=== PATIENT | female | born 1985 | race Caucasian/White ===

== ENCOUNTER 2018-11-30 08:29 | Emergency (ER) | payer SELFPAY ==
--- NOTE | 2018-11-30 09:37 | EDM.PDOC ---
ED HPI GENERAL MEDICAL PROBLEM - General Chief Complaint: NEGATIVE RETOUCHER Problem Stated Complaint: MISCARRAGE? Time Seen by Provider: 11/30/18 09:15 Source of Information: Reports: Patient, RN History Limitations: Reports: No Limitations - History of Present Illness INITIAL COMMENTS - FREE TEXT/NARRATIVE: 33 yo female presents with vaginal bleeding. This has been going on for a few weeks, but got heavy with clots last night and passed some tissue. She is RH positive. Is not dizzy with standing. Presented to urgent care today and they sent her to the ER. Has children at home already. Has not taken a preg test. Onset: Gradual Duration: Week(s): (~3), Getting Worse Severity: Moderate Improves with: Reports: None Worsens with: Reports: Other (? 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) (none) - Related Data Allergies Allergy/AdvReac Type Severity Reaction Status Date / Time No Known Allergies Allergy Verified 11/30/18 08:54 Home Meds: Home Meds NK [No Known Home Meds] 11/30/18 [History] Past Medical History HEENT History: Reports: Impaired Vision Respiratory History: Reports: Asthma NEGATIVE RETOUCHER History: Reports: Psychiatric History: Reports: PTSD - Past Surgical History Head Surgeries/Procedures: Reports: None HEENT Surgical History: Reports: None Respiratory Surgical History: Reports: None Dermatological Surgical History: Reports: None Social & Family History - Tobacco Use Smoking Status *Q: Current Every Day Smoker Years of Tobacco use: 10 Packs/Tins Daily: 0.5 Used Tobacco, but Quit: No - Caffeine Use Caffeine Use: Reports: Soda - Alcohol Use Days Per Week of Alcohol Use: 3 Number of Drinks Per Day: 2 Total Drinks Per Week: 6 - Recreational Drug Use Recreational Drug Use: No ED ROS GENERAL - Review of Systems Review Of Systems: See Below Constitutional: Reports: No Symptoms HEENT: Reports: No Symptoms Respiratory: Reports: No Symptoms Cardiovascular: Reports: No Symptoms GI/Abdominal: Reports: No Symptoms : Reports: Other (heavy vaginal bleeding) 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: Reports: No Symptoms Skin: Reports: No Symptoms Neurological: Reports: No Symptoms Psychiatric: Reports: No Symptoms ED EXAM - Physical Exam Exam: See Below Exam Limited By: No Limitations General Appearance: Alert, WD/WN, No Apparent Distress Eye Exam: Bilateral Eye: Normal Inspection Ears: Normal External Exam, Normal Canal, Hearing Grossly Normal Nose: Normal Inspection, No Blood Throat/Mouth: Normal Inspection, Normal Lips, Normal Oropharynx, Normal Voice, No Airway Compromise Head: Atraumatic, Normocephalic Neck: Normal Inspection Respiratory/Chest: No Respiratory Distress, Lungs Clear, Normal Breath Sounds, No Accessory Muscle Use Cardiovascular: Regular Rate, Rhythm, No Edema GI/Abdominal Exam: Normal Bowel Sounds, Soft, Non-Tender, No Distention Extremities: Normal Inspection Neurological: Alert, Oriented, CN II-XII Intact, Normal Cognition, No Motor/ Sensory Deficits Psychiatric: Normal Affect, Normal Mood Skin Exam: Warm, Dry, Intact, Normal Color, No Rash Course - Vital Signs Last Recorded V/S: Last Vital Signs Temp 36.0 C 11/30/18 08:44 Pulse 87 11/30/18 08:44 Resp 16 11/30/18 08:44 BP 142/94 H 11/30/18 08:44 Pulse Ox 97 11/30/18 08:44 Orthostatic Blood Pressure [ 134/75 Standing] Orthostatic Blood Pressure [ 125/79 Sitting] Orthostatic Blood Pressure [ 117/72 Supine] - Orders/Labs/Meds Orders: Active Orders 24 hr Category Date Time Status Orthostatic Vital Signs [RC] ASDIRECTED Care 11/30/18 09:00 Active Labs: Laboratory Tests 11/30/18 Range/Units 09:05 Urine HCG, Qual Positive H Departure - Departure Time of Disposition: 09:38 Disposition: Home, Self-Care 01 Condition: Good Clinical Impression: Miscarriage - Discharge Information *PRESCRIPTION DRUG MONITORING PROGRAM REVIEWED*: No *COPY OF PRESCRIPTION DRUG MONITORING REPORT IN PATIENT HODAN: No Referrals: PCP,None [Primary Care Provider] - Additional Instructions: Drink ample fluids. We have given you a referral to NEGATIVE RETOUCHER. If your bleeding stops you may cancel this appt. Return if you are getting dizzy with standing and your bleeding continues. - My Orders Last 24 Hours: My Active Orders 11/30/18 09:00 Orthostatic Vital Signs [RC] ASDIRECTED - Assessment/Plan Last 24 Hours: My Active Orders 11/30/18 09:00 Orthostatic Vital Signs [RC] ASDIRECTED
== END 2018-11-30 09:44 | disposition home or self-care (01) ==
LOC: JP.ED 08:29
DX: O03.9 Complete or unspecified spontaneous abortion without complication (principal); F17.210 Nicotine dependence, cigarettes, uncomplicated; J45.909 Unspecified asthma, uncomplicated
CPT/HCPCS: 81025; 99284

== ENCOUNTER 2019-12-18 07:23 | Inpatient (IN) | payer MEDICAID ==
[2019-12-18] MEDS ORDERED: Sodium Chloride 0.9% 10 ML Syringe FLUSH PRN (07:55)
[2019-12-18] MEDS ORDERED: fentaNYL 100 MCG/2 ML SDV IVPUSH PRN (07:55)
[2019-12-18] MEDS ORDERED: Acetaminophen 325 MG Tab PO PRN (07:55)
[2019-12-18] MEDS: Misoprostol 50 MCG (1/2 of 100 MCG) Tab VAG ONE ×2 (08:06→13:15)
--- NOTE | 2019-12-18 08:14 | PCM.LDHP ---
L&D History of Present Illness - General Date of Service: 12/18/19 (planned induction for smoking) Admit Problem/Dx: Patient Status Order with Admit Dx/Problem 12/18/19 07:55 Patient Status [ADT] Routine Admission Diagnosis/Problem Admission Diagnosis/Problem Source of Information: Patient History Limitations: Reports: No Limitations - History of Present Illness Introduction:: This 34 year old presents this morning for planned induction for smoking. She is 39 4/7 weeks gestation. Umu also drink pretty much daily for the first 10-12 weeks of her . She has had adequate care and this morning's BPP was 8/8. Jodie 9 labs: GBS neg, ABO A pos, Rubella immune, HIV neg, Covid neg Timing/Duration: Reports: intermittent Location, : Reports: Abdomen Severity: Mild Improves with: Reports: None Worsens with: Reports: None - Related Data Allergies/Adverse Reactions: Allergies Allergy/AdvReac Type Severity Reaction Status Date / Time No Known Allergies Allergy Verified 11/30/18 08:54 Home Medications: Home Meds Albuterol Sulfate [Albuterol Sulfate Hfa] 1 - 2 puff IH Q4H PRN 12/18/19 [ History] Omeprazole 20 mg PO DAILY 12/18/19 [History] Pnv No.103/Folic/Om3s/Fish Oil [ Gummies] 2 each PO DAILY 12/18/19 [ History] Past Medical History HEENT History: Reports: Impaired Vision Respiratory History: Reports: Asthma 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 (Approximate): Psychiatric History: Reports: PTSD - Past Surgical History Head Surgeries/Procedures: Reports: None HEENT Surgical History: Reports: None Respiratory Surgical History: Reports: None Dermatological Surgical History: Reports: None Social & Family History - Caffeine Use Caffeine Use: Reports: Soda H&P Review of Systems - Review of Systems: Review Of Systems: See Below General: Reports: No Symptoms HEENT: Reports: No Symptoms Pulmonary: Reports: No Symptoms Cardiovascular: Reports: No Symptoms Gastrointestinal: Reports: No Symptoms Genitourinary: Reports: No Symptoms 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: Reports: No Symptoms Skin: Reports: No Symptoms Psychiatric: Reports: No Symptoms Neurological: Reports: No Symptoms Hematologic/Lymphatic: Reports: No Symptoms Immunologic: Reports: No Symptoms L&D Exam - Exam Exam: See Below - OB Specific Movement: Active Heart Tones: Present Heart Tones per Min: 140 Heart Rate (FHR) Variability: Minimal (0-5 bpm) Presentation: Vertex - Bustamante Score Bustamante Score Cervix Position: Midposition Bustamante Score Consistency: Soft Bustamante Score Effacement: 51-70% Bustamante Score Dilation: 1-2 cm Bustamante Score 's Station: -1 ,0 Bustamante Score Total: 8 - Exam General: Alert, Oriented HEENT: PERRLA Neck: Supple Lungs: Normal Respiratory Effort Cardiovascular: Regular Rhythm GI/Abdominal Exam: Soft Rectal Exam: Normal Exam Genitourinary: Cervical dilitation, Enlarged uterus Back Exam: Full Range of Motion Extremities: No Pedal Edema, Normal Capillary Refill Skin: Warm Neurological: Cranial Nerves Intact Psychiatric: Alert, Normal Affect, Normal Mood - Patient Data Lab Results Last 24 hrs: Laboratory Results - last 24 hr 12/18/19 Range/Units 07:15 WBC 11.2 H (4.5-11.0) K/uL RBC 3.93 (3.30-5.50) M/uL Hgb 12.3 (12.0-15.0) g/dL Hct 37.9 (36.0-48.0) % MCV 96 (80-98) fL MCH 31 (27-31) pg MCHC 33 (32-36) % Plt Count 293 (150-400) K/uL Result Diagrams: 12/18/19 07:15 - Problem List (1) Alcohol abuse complicating in first trimester SNOMED Code(s): 24129958, 703415950 ICD Code: O99.311 - ALCOHOL USE COMPLICATING , FIRST TRIMESTER; F10.10 - ALCOHOL ABUSE, UNCOMPLICATED Status: Acute Current Visit: Yes (2) Smoker SNOMED Code(s): 90826038 ICD Code: F17.200 - NICOTINE DEPENDENCE, UNSPECIFIED, UNCOMPLICATED Status : Acute Current Visit: Yes (3) SNOMED Code(s): 16287981 ICD Code: Z34.90 - ENCNTR FOR SUPRVSN OF NORMAL , UNSP, UNSP TRIMESTER Status: Acute Current Visit: Yes Qualifiers: Weeks of gestation: 39 weeks Qualified Code(s): Z3A.39 - 39 weeks gestation of Problem List Initiated/Reviewed/Updated: Yes Orders Last 24hrs: Active Orders 24 hr Category Date Time Status Patient Status [ADT] Routine ADT 12/18/19 07:55 Active Antiembolic Devices [RC] .Routine Care 12/18/19 07:59 Active Communication Order [RC] ASDIRECTED Care 12/18/19 07:55 Active Heart Tones [RC] PER UNIT ROUTINE Care 12/18/19 07:55 Active Non Stress Test [RC] Click to Edit Care 12/18/19 07:55 Active Notify Provider Vital Signs [RC] PRN Care 12/18/19 07:55 Active Notify Provider [RC] PRN Care 12/18/19 07:55 Active VTE/DVT Education [RC] Click to Edit Care 12/18/19 07:59 Active Vital Signs [RC] PER UNIT ROUTINE Care 12/18/19 07:55 Active Clear Liquid Diet [DIET] Diet 12/18/19 Lunch Active BPP w NST [US] Routine Exams 12/18/19 07:00 Ordered DRUG SCREEN, URINE [URCHEM] Routine Lab 12/18/19 07:28 Ordered UA W/MICROSCOPIC [URIN] Routine Lab 12/18/19 07:15 Ordered Acetaminophen [Tylenol] Med 12/18/19 07:55 Active 650 mg PO Q4H PRN Oxytocin/Normal Saline [Pitocin in NS 20 Units/1,000 ML Med 12/18/19 10:00 Active ] 20 unit in 1,000 ml IV ONETIME Sodium Chloride 0.9% [Saline Flush] Med 12/18/19 07:55 Active 10 ml FLUSH ASDIRECTED PRN fentaNYL [Sublimaze] Med 12/18/19 07:55 Active 100 mcg IVPUSH Q1H PRN DVT/VTE Prophylaxis Reflex [OM.PC] Routine Oth 12/18/19 07:55 Ordered Saline Lock Insert [OM.PC] Routine Oth 12/18/19 07:55 Ordered Resuscitation Status Routine Resus Stat 12/18/19 07:55 Ordered Medication Orders Acetaminophen (Tylenol) 650 mg PO Q4H PRN PRN Reason: Pain (Mild 1-3) and fever Fentanyl (Sublimaze) 100 mcg IVPUSH Q1H PRN PRN Reason: Pain (moderate 4-6) Oxytocin/Sodium Chloride (Pitocin In Ns 20 Units/1,000 Ml) 20 unit in 1,000 mls @ 999 mls/hr IV ONETIME ONE; Protocol Stop: 12/18/19 11:00 Sodium Chloride (Saline Flush) 10 ml FLUSH ASDIRECTED PRN PRN Reason: Keep Vein Open Assessment/Plan Comment:: 34 year old 39 4/7 weeks, smoker and first trimester alcohol. BPP8/8 GBS and Covid neg HGB 12.3 Baseline FHT 140 few contractions, strip has minimal variability, most likely related to smoker and term . CE soft /-1, midposition Plan: Miso 50 mcg vaginally monitor for labor IV fluid bolus breakfast and oral fluids can be up and about after initial hour of monitoring. will reassess at noon for change and or labor she hasn't decided on pain medication, will wait and see how it goes.
[2019-12-18] MEDS: Lactated Ringers 1,000 ML IV SCH ×2 (08:25→14:30)
--- NOTE | 2019-12-18 12:05 | US ---
BPP w NST INDICATION: h/o alcohol use during ,smoker; induction COMPARISON: None FINDINGS: Single live IUP heart rate: 149 BPM. Biophysical profile score: 8/8 BIANCA: 9.6 cm. IMPRESSION: Normal biophysical profile score of 8/8.
--- NOTE | 2019-12-18 12:44 | PCM.PNLD ---
Labor Progress Note - VS & Meds Vital Signs: Last Vital Signs Temp 98.7 F 12/18/19 12:00 Pulse 91 12/18/19 12:11 Resp 18 12/18/19 12:11 BP 126/66 12/18/19 12:00 Pulse Ox 96 12/18/19 12:11 Active Medications: Current Medications Acetaminophen (Tylenol) 650 mg PO Q4H PRN PRN Reason: Pain (Mild 1-3) and fever Fentanyl (Sublimaze) 100 mcg IVPUSH Q1H PRN PRN Reason: Pain (moderate 4-6) Sodium Chloride (Saline Flush) 10 ml FLUSH ASDIRECTED PRN PRN Reason: Keep Vein Open Discontinued Medications Oxytocin/Sodium Chloride (Pitocin In Ns 20 Units/1,000 Ml) 20 unit in 1,000 mls @ 999 mls/hr IV ONETIME ONE; Protocol Stop: 12/18/19 11:00 Lactated Ringer's (Ringers, Lactated) 1,000 mls @ 500 mls/hr IV ASDIRECTED MITCHEL Stop: 12/18/19 10:00 Last Admin: 12/18/19 08:25 Dose: 500 mls/hr Misoprostol (Cytotec) 50 mcg VAG ONETIME ONE Stop: 12/18/19 07:31 Last Admin: 12/18/19 08:06 Dose: 50 mcg Misoprostol (Cytotec) 50 mcg VAG ONETIME ONE Stop: 12/18/19 11:22 - Uterine Contractions Uterine Monitoring Mode: External [place] Contraction Frequency (min): 2-5 Contraction Duration (sec): 60-110 Contraction Intensity: Mild to Moderate Uterine Resting Tone: Soft - Monitoring Monitor Mode: Doppler/Auscultation Heart Rate (FHR) Baseline: 140 Heart Rate (FHR) Variability: Moderate (6-25 bmp) Accelerations: Present with Movement Strip Review: Category II - Vaginal Exam Dilation (cm): 3 Effacement (Percent): 80 Station: 0 Cervical Position: Midposition Sterile Vaginal Exam Performed By: Veronica Mendoza Vaginal Exam Comment: AROM clear - Labor Progress (Free Text) Labor Progress: cervical change since this morning. due to her smoking baby's strip is cat two intermittently. She has had IV fluid and oral fluids. She napped and eat. Plan Plan for vaginal delivery get her up and out of the bed pain medication per her request
[2019-12-18] MEDS: Lactated Ringers 1,000 ML IV ONE (13:30)
[2019-12-18] MEDS ORDERED: ePHEDrine 50 MG/ML SDV IVPUSH PRN (13:46)
[2019-12-18] MEDS ORDERED: Ropivacaine 100 ML ONE (13:54)
--- NOTE | 2019-12-18 14:04 | PCM.PNLD ---
Labor Progress Note - VS & Meds Vital Signs: Last Vital Signs Temp 98.7 F 12/18/19 12:00 Pulse 91 12/18/19 12:30 Resp 18 12/18/19 12:30 BP 126/66 12/18/19 12:00 Pulse Ox 96 12/18/19 12:30 Active Medications: Current Medications Acetaminophen (Tylenol) 650 mg PO Q4H PRN PRN Reason: Pain (Mild 1-3) and fever Ephedrine Sulfate (Ephedrine Sulfate) 10 mg IVPUSH ASDIRECTED PRN PRN Reason: Hypotension Fentanyl (Sublimaze) 100 mcg IVPUSH Q1H PRN PRN Reason: Pain (moderate 4-6) Lactated Ringer's (Ringers, Lactated) 1,000 mls @ 999 mls/hr IV BOLUS ONE Stop: 12/18/19 14:45 Sodium Chloride (Saline Flush) 10 ml FLUSH ASDIRECTED PRN PRN Reason: Keep Vein Open Discontinued Medications Oxytocin/Sodium Chloride (Pitocin In Ns 20 Units/1,000 Ml) 20 unit in 1,000 mls @ 999 mls/hr IV ONETIME ONE; Protocol Stop: 12/18/19 11:00 Lactated Ringer's (Ringers, Lactated) 1,000 mls @ 500 mls/hr IV ASDIRECTED MITCHEL Stop: 12/18/19 10:00 Last Admin: 12/18/19 08:25 Dose: 500 mls/hr Ropivacaine (Naropin 0.2%) Confirm Administered Dose 100 mls @ as directed .ROUTE .STK-MED ONE Stop: 12/18/19 13:55 Misoprostol (Cytotec) 50 mcg VAG ONETIME ONE Stop: 12/18/19 07:31 Last Admin: 12/18/19 08:06 Dose: 50 mcg Misoprostol (Cytotec) 50 mcg VAG ONETIME ONE Stop: 12/18/19 11:22 Last Admin: 12/18/19 13:15 Dose: Not Given - Uterine Contractions Uterine Monitoring Mode: External [place] Contraction Frequency (min): 2-3 Contraction Duration (sec): 70-90 Contraction Intensity: Moderate Uterine Resting Tone: Soft - Monitoring Monitor Mode: Doppler/Auscultation Heart Rate (FHR) Baseline: 140 Heart Rate (FHR) Variability: Moderate (6-25 bmp) Accelerations: Present, 15x15 Decelerations: None Strip Review: Category II - Vaginal Exam Dilation (cm): 6 Effacement (Percent): 80 Station: 0 Cervical Position: Anterior Sterile Vaginal Exam Performed By: Aylin Villegas (RN) Vaginal Exam Comment: AROM clear - Labor Progress (Free Text) Labor Progress: rapid progress from 1230. Requesting epidural RN states 6 cm and thin active labor at term epidural for pain plan for vaginal delivery
--- NOTE | 2019-12-18 14:19 | PCM.PNLD ---
Labor Progress Note - VS & Meds Vital Signs: Last Vital Signs Temp 98.7 F 12/18/19 12:00 Pulse 91 12/18/19 12:30 Resp 18 12/18/19 12:30 BP 126/66 12/18/19 12:00 Pulse Ox 96 12/18/19 12:30 Active Medications: Current Medications Acetaminophen (Tylenol) 650 mg PO Q4H PRN PRN Reason: Pain (Mild 1-3) and fever Ephedrine Sulfate (Ephedrine Sulfate) 10 mg IVPUSH ASDIRECTED PRN PRN Reason: Hypotension Fentanyl (Sublimaze) 100 mcg IVPUSH Q1H PRN PRN Reason: Pain (moderate 4-6) Lactated Ringer's (Ringers, Lactated) 1,000 mls @ 999 mls/hr IV BOLUS ONE Stop: 12/18/19 14:45 Sodium Chloride (Saline Flush) 10 ml FLUSH ASDIRECTED PRN PRN Reason: Keep Vein Open Discontinued Medications Oxytocin/Sodium Chloride (Pitocin In Ns 20 Units/1,000 Ml) 20 unit in 1,000 mls @ 999 mls/hr IV ONETIME ONE; Protocol Stop: 12/18/19 11:00 Lactated Ringer's (Ringers, Lactated) 1,000 mls @ 500 mls/hr IV ASDIRECTED MITCHEL Stop: 12/18/19 10:00 Last Admin: 12/18/19 08:25 Dose: 500 mls/hr Ropivacaine (Naropin 0.2%) Confirm Administered Dose 100 mls @ as directed .ROUTE .STK-MED ONE Stop: 12/18/19 13:55 Misoprostol (Cytotec) 50 mcg VAG ONETIME ONE Stop: 12/18/19 07:31 Last Admin: 12/18/19 08:06 Dose: 50 mcg Misoprostol (Cytotec) 50 mcg VAG ONETIME ONE Stop: 12/18/19 11:22 Last Admin: 12/18/19 13:15 Dose: Not Given - Uterine Contractions Uterine Monitoring Mode: External [place] Contraction Frequency (min): 2-3 Contraction Duration (sec): 70-90 Contraction Intensity: Moderate Uterine Resting Tone: Soft - Monitoring Monitor Mode: Doppler/Auscultation Heart Rate (FHR) Baseline: 140 Heart Rate (FHR) Variability: Moderate (6-25 bmp) Accelerations: Present, 15x15 Decelerations: None Strip Review: Category II - Vaginal Exam Dilation (cm): 7 Effacement (Percent): 80 Station: 0 Cervical Position: Anterior Sterile Vaginal Exam Performed By: Veronica Mendoza (post epidural) Vaginal Exam Comment: head well applied. Making change - Labor Progress (Free Text) Labor Progress: anticipate vaginal delivery Cat one strip contractions 1-2 minutes good pain relied with epidural
--- NOTE | 2019-12-18 16:28 | PCM.PNLD ---
Labor Progress Note - VS & Meds Vital Signs: Last Vital Signs Temp 98.7 F 12/18/19 12:00 Pulse 91 12/18/19 12:30 Resp 18 12/18/19 12:30 BP 126/66 12/18/19 12:00 Pulse Ox 96 12/18/19 12:30 Active Medications: Current Medications Acetaminophen (Tylenol) 650 mg PO Q4H PRN PRN Reason: Pain (Mild 1-3) and fever Ephedrine Sulfate (Ephedrine Sulfate) 10 mg IVPUSH ASDIRECTED PRN PRN Reason: Hypotension Fentanyl (Sublimaze) 100 mcg IVPUSH Q1H PRN PRN Reason: Pain (moderate 4-6) Lactated Ringer's (Ringers, Lactated) 1,000 mls @ 100 mls/hr IV ASDIRECTED [facility] Last Admin: 12/18/19 14:30 Dose: 100 mls/hr Sodium Chloride (Saline Flush) 10 ml FLUSH ASDIRECTED PRN PRN Reason: Keep Vein Open Discontinued Medications Oxytocin/Sodium Chloride (Pitocin In Ns 20 Units/1,000 Ml) 20 unit in 1,000 mls @ 999 mls/hr IV ONETIME ONE; Protocol Stop: 12/18/19 11:00 Lactated Ringer's (Ringers, Lactated) 1,000 mls @ 500 mls/hr IV ASDIRECTED [facility] Stop: 12/18/19 10:00 Last Admin: 12/18/19 08:25 Dose: 500 mls/hr Lactated Ringer's (Ringers, Lactated) 1,000 mls @ 999 mls/hr IV BOLUS ONE Stop: 12/18/19 14:45 Last Admin: 12/18/19 13:30 Dose: 999 mls/hr Ropivacaine (Naropin 0.2%) Confirm Administered Dose 100 mls @ as directed .ROUTE .STK-MED ONE Stop: 12/18/19 13:55 Misoprostol (Cytotec) 50 mcg VAG ONETIME ONE Stop: 12/18/19 07:31 Last Admin: 12/18/19 08:06 Dose: 50 mcg Misoprostol (Cytotec) 50 mcg VAG ONETIME ONE Stop: 12/18/19 11:22 Last Admin: 12/18/19 13:15 Dose: Not Given - Uterine Contractions Uterine Monitoring Mode: External [place] Contraction Frequency (min): 2-3 Contraction Duration (sec): 60-80 Contraction Intensity: Moderate to Strong Uterine Resting Tone: Soft - Monitoring Monitor Mode: Doppler/Auscultation Heart Rate (FHR) Baseline: 140 Heart Rate (FHR) Variability: Moderate (6-25 bmp) Accelerations: Present, 15x15 Decelerations: None Strip Review: Category II - Vaginal Exam Dilation (cm): 10 Effacement (Percent): 100 Station: 2 Cervical Position: Anterior Sterile Vaginal Exam Performed By: Veronica Mendoza Vaginal Exam Comment: Umu is not a good pusher. We have tried all kinds of positions. Slow progress. - Labor Progress (Free Text) Labor Progress: two rest periods for 15 minutes with the peanut ball, added Pitocin. May need the [place] for help if she can get baby a little lower. OR team notified of possible c section. FHT 148 cat 2 strip with early decels that recover well after contraction.
[2019-12-18] MEDS ORDERED: Hydrocortisone 2.5% Crm 30 GM Tube TOP PRN (17:17)
--- NOTE | 2019-12-18 17:29 | PCM.DEL ---
L & D Note - General Info Date of Service: 12/18/19 Mother's Due Date: 12/21/19 - Delivery Note Labor: Spontaneous Cervical Ripening Method: Misoprostil Delivery Outcome: Livebirth Delivery Method: Spontaneous Vaginal Delivery-Single Infant Delivery Mode: Vacuum Extraction Presentation: Vertex Nuchal Cord: None Anesthesia Type: Epidural Amniotic Fluid Description: Clear Episiotomy Type: None Placenta: Intact, Spontaneous, Expressed Estimated Blood Loss: 100 Resuscitation Needed: No [place]: Bulb Syringe, Stimulated, Warmed, [place] Used Provider: Veronica Mendoza Score 1 min: 8 (color) Score 5 min: 9 (color) Second Stage Interventions: Reports: Second Nurse Reviewed Heart Tones, Laboring Down, Pushing Ineffectively, Pushing, Knee Chest Position, Pushing, Left Side, Pushing, McRobert's Position, Pushing, Right Side, Pushing, Squat Bar Pulling on Sheet Delivery Comments (Free Text/Narrative):: This 34 year old G5 now P3 delivered via vaginal assisted vacuum at 1659 at male in SHITAL position. He was blue and stunned on delivery. The cord was double clamped and cut and he was taken to the warmer. He cried spontaneously and had good tone and HR was 140. First was 8 two off for color. He was dried and stimulate and quick exam and back to mom for skin to skin. Second 9 one off for color. Three vessel cord and marginal cord insertion. The placenta was expressed spontaneously intact. No laceration were found. She did have a small perineal skid arian not repaired. EBL 100cc Mother and baby to post in stable condition. weight 8-14 lbs. Induction Criteria - Bustamante Score Bustamante Score Dilation: 1-2 cm Bustamante Score Effacement: 60-70% Bustamante Score 's Station: -1 ,0 Bustamante Score Consistency: Soft Bustamante Score Cervix Position: Midposition Bustamante Score Total: 8 Bustamante Score Presenting Part: Reports: Cephalic - Induction Gestational Age >/= 39 wks: Yes Estimated Pelvis: Reports: Adequate Reassuring Monitoring Strip: Yes Absence of Tachy Systole: Yes Vacuum Extractor Progress Note - Alternative Labor Strategies Considered Alternative Labor Strategies Considered:: Reports: Yes Strategies Considered:: Reports: Contraction Intensity Adequate, Position Changes Used to Facilitate Rotation & Descent, Empty Bladder, Rest Indications Considered:: Reports: Yes Indications:: Reports: Prolonged 2nd Stage, Shortening of 2nd Stage for Maternal Benefit Time Out:: Reports: Yes - Patient Prepared Patient Prepared:: Reports: Yes Informed Consent:: Reports: Verbal Risks: Reports: Yes Risks Include:: Reports: Laceration, Shoulder Dystocia, Maternal Injury, Other Anesthesia/Analgesia Adequate:: Reports: Yes - Probability of Success High Probability of Success:: Reports: Yes Weight Estimated:: Reports: LGA Patient Diabetic:: Reports: No Pelvis Adequate:: Reports: Yes Position:: SHITAL - Application Time Maximum Application Time & Number of Pop-Offs Predetermined:: Reports: Yes Total Application Time (min): *max=20min: 1 Number of Times Cup Disengaged:: 0 Type of Vacuum Used:: Reports: Cup: Mushroom type Vacuum Extraction: Successful - Exit Strategy Exit strategy available:: Reports: Yes and resuscitation teams readily available:: Reports: Yes - General Info Date of Service: 12/18/19 Functional Status: Reports: Pain Controlled - Review of Systems General: Reports: No Symptoms HEENT: Reports: No Symptoms Pulmonary: Reports: No Symptoms Cardiovascular: Reports: No Symptoms Gastrointestinal: Reports: No Symptoms Genitourinary: Reports: No Symptoms 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: Reports: No Symptoms Skin: Reports: No Symptoms Neurological: Reports: No Symptoms Psychiatric: Reports: No Symptoms - Patient Data Vitals - Most Recent: Last Vital Signs Temp 98.7 F 12/18/19 12:00 Pulse 91 12/18/19 12:30 Resp 18 12/18/19 12:30 BP 126/66 12/18/19 12:00 Pulse Ox 96 12/18/19 12:30 Weight - Most Recent: 180 lb I&O - Last 24 Hours: Intake & Output 12/18/19 12/18/19 12/18/19 06:59 14:59 22:59 Output Total 100 Balance -100 Lab Results Last 24 Hours: Laboratory Results - last 24 hr 12/18/19 12/18/19 12/18/19 Range/Units 07:15 07:15 07:28 WBC 11.2 H (4.5-11.0) K/uL RBC 3.93 (3.30-5.50) M/uL Hgb 12.3 (12.0-15.0) g/dL Hct 37.9 (36.0-48.0) % MCV 96 (80-98) fL MCH 31 (27-31) pg MCHC 33 (32-36) % Plt Count 293 (150-400) K/uL Urine Color Yellow (YELLOW) Urine Appearance Clear (CLEAR) Urine pH 5.5 (5.0-8.0) Ur Specific [place] 1.025 (1.008-1.030) Urine Protein Negative (NEGATIVE) mg/dL Urine Glucose (UA) Negative (NEGATIVE) mg/dL Urine Ketones Negative (NEGATIVE) mg/dL Urine Occult Blood Negative (NEGATIVE) Urine Nitrite Negative (NEGATIVE) Urine Bilirubin Negative (NEGATIVE) Urine Urobilinogen 0.2 (0.2-1.0) EU/dL Ur Leukocyte Esterase Negative (NEGATIVE) Urine RBC Not seen (0-5) Urine WBC 0-5 (0-5) Ur Epithelial Cells Many Urine Bacteria Few Urine Opiates Screen Negative (NEGATIVE) Ur Oxycodone Screen Negative (NEGATIVE) Urine Methadone Screen Negative (NEGATIVE) Ur Propoxyphene Screen Negative (NEGATIVE) Ur Barbiturates Screen Negative (NEGATIVE) Ur Tricyclics Screen Negative (NEGATIVE) Ur Phencyclidine Scrn Negative (NEGATIVE) Ur Amphetamine Screen Negative (NEGATIVE) U Methamphetamines Scrn Negative (NEGATIVE) Urine MDMA Screen Negative (NEGATIVE) U Benzodiazepines Scrn Negative (NEGATIVE) U Cocaine Metab Screen Negative (NEGATIVE) U Marijuana (THC) Screen Negative (NEGATIVE) Med Orders - Current: Current Medications Acetaminophen (Tylenol) 650 mg PO Q4H PRN PRN Reason: Pain (Mild 1-3) and fever Ephedrine Sulfate (Ephedrine Sulfate) 10 mg IVPUSH ASDIRECTED PRN PRN Reason: Hypotension Fentanyl (Sublimaze) 100 mcg IVPUSH Q1H PRN PRN Reason: Pain (moderate 4-6) Lactated Ringer's (Ringers, Lactated) 1,000 mls @ 100 mls/hr IV ASDIRECTED MITCHEL Last Admin: 12/18/19 14:30 Dose: 100 mls/hr Sodium Chloride (Saline Flush) 10 ml FLUSH ASDIRECTED PRN PRN Reason: Keep Vein Open Discontinued Medications Oxytocin/Sodium Chloride (Pitocin In Ns 20 Units/1,000 Ml) 20 unit in 1,000 mls @ 999 mls/hr IV ONETIME ONE; Protocol Stop: 12/18/19 11:00 Lactated Ringer's (Ringers, Lactated) 1,000 mls @ 500 mls/hr IV ASDIRECTED MITCHEL Stop: 12/18/19 10:00 Last Admin: 12/18/19 08:25 Dose: 500 mls/hr Lactated Ringer's (Ringers, Lactated) 1,000 mls @ 999 mls/hr IV BOLUS ONE Stop: 12/18/19 14:45 Last Admin: 12/18/19 13:30 Dose: 999 mls/hr Ropivacaine (Naropin 0.2%) Confirm Administered Dose 100 mls @ as directed .ROUTE .STK-MED ONE Stop: 12/18/19 13:55 Misoprostol (Cytotec) 50 mcg VAG ONETIME ONE Stop: 12/18/19 07:31 Last Admin: 12/18/19 08:06 Dose: 50 mcg Misoprostol (Cytotec) 50 mcg VAG ONETIME ONE Stop: 12/18/19 11:22 Last Admin: 12/18/19 13:15 Dose: Not Given - Exam General: Alert, Oriented HEENT: Pupils Equal, Pupils Reactive, Mucous Membr. Moist/[place] Neck: Supple Lungs: Clear to Auscultation, Normal Respiratory Effort Cardiovascular: Regular Rate, Regular Rhythm GI/Abdominal Exam: Normal Bowel Sounds, Soft (Female) Exam: Normal External Exam, Cervical Dilatation, Enlarged Uterus, Vaginal Bleeding Back Exam: Normal Inspection, Full Range of Motion Extremities: Normal Range of Motion, No Pedal Edema, Normal Capillary Refill Skin: Warm, Dry, Intact Neurological: No New Focal Deficit Psy/Mental Status: Alert, Normal Affect, Normal Mood - Problem List & Annotations (1) Alcohol abuse complicating in first trimester SNOMED Code(s): 43896582, 934752196 Code(s): O99.311 - ALCOHOL USE COMPLICATING , FIRST TRIMESTER; F10.10 - ALCOHOL ABUSE, UNCOMPLICATED Status: Acute Current Visit: Yes (2) Smoker SNOMED Code(s): 63730779 Code(s): F17.200 - NICOTINE DEPENDENCE, UNSPECIFIED, UNCOMPLICATED Status: Acute Current Visit: Yes (3) SNOMED Code(s): 75408590 Code(s): Z34.90 - ENCNTR FOR SUPRVSN OF NORMAL , UNSP, UNSP TRIMESTER Status: Acute Current Visit: Yes Qualifiers: Weeks of gestation: 39 weeks Qualified Code(s): Z3A.39 - 39 weeks gestation of (4) Vacuum-assisted vaginal delivery SNOMED Code(s): 99751304790650416 Code(s): Z37.9 - OUTCOME OF DELIVERY, UNSPECIFIED Status: Acute Current Visit: Yes (5) Vaginal delivery SNOMED Code(s): 467326119 Code(s): O80 - ENCOUNTER FOR FULL-TERM UNCOMPLICATED DELIVERY Status: Acute Current Visit: Yes (6) Active labor at term SNOMED Code(s): 89901366 Code(s): YFC5800 - Status: Acute Current Visit: Yes - Problem List Review Problem List Initiated/Reviewed/Updated: Yes - My Orders Last 24 Hours: My Active Orders 12/18/19 07:55 Communication Order [RC] ASDIRECTED Notify Provider Vital Signs [RC] PRN Notify Provider [RC] PRN Vital Signs [RC] PER UNIT ROUTINE Acetaminophen [Tylenol] 650 mg PO Q4H PRN Sodium Chloride 0.9% [Saline Flush] 10 ml FLUSH ASDIRECTED PRN fentaNYL [Sublimaze] 100 mcg IVPUSH Q1H PRN DVT/VTE Prophylaxis Reflex [OM.PC] Routine Saline Lock Insert [OM.PC] Routine Resuscitation Status Routine 12/18/19 07:59 Antiembolic Devices [RC] .Routine VTE/DVT Education [RC] Click to Edit 12/18/19 13:46 ePHEDrine [ePHEDrine sulfate] 10 mg IVPUSH ASDIRECTED PRN 12/18/19 13:47 Communication Order [RC] ASDIRECTED Local Anesthetic Infusion Pump [RC] ASDIRECTED PCEA Epidural [RC] ASDIRECTED Urinary Catheter Assessment [RC] ASDIRECTED Epidural Catheter Management [OM.PC] Urgent 12/18/19 14:00 Insert Urinary Catheter [OM.PC] ASDIRECTED 12/18/19 14:45 Lactated Ringers [Ringers, Lactated] 1,000 ml IV ASDIRECTED 12/18/19 17:17 May Shower [RC] ASDIRECTED Up ad Sadie [RC] ASDIRECTED Acetaminophen [Tylenol Bulk Bottle] See Dose Instructions PO Q4H PRN Benzocaine [Yrtq-F-Gppatgj 20% [place]] See Dose Instructions TOP Q4H ONE Hydrocortisone [Proctozone-HC 2.5% Crm] 1 gm TOP ASDIRECTED PRN Ibuprofen [Motrin Bulk Bottle] 600 mg PO Q6H PRN Lanolin [Lansinoh HPA] 1 gm TOP ASDIRECTED ONE witshyam Chadd [Tucks] 1 pad TOP ASDIRECTED ONE Assess Lochia [WOMSER] Per Unit Routine Assess Uterine Involution [WOMSER] Per Unit Routine 12/18/19 17:18 Patient Status [ADT] Routine Vital Signs [RC] PFP Perineal Care [OM.PC] Per Unit Routine Sitz Bath [OM.PC] Per Unit Routine 12/18/19 17:19 Ice Therapy [OM.PC] Per Unit Routine Peripheral IV Discontinue [OM.PC] Routine 12/18/19 Dinner Regular Diet [DIET] 12/19/19 05:11 CBC WITH AUTO DIFF [HEME] AM - Assessment Assessment:: 12/16/19 34 year old vacuum assisted vaginal delivery without other complications Male , - Plan Plan:: 34 year old 39 4/7 weeks, smoker and first trimester alcohol. BPP8/8 GBS and Covid neg HGB 12.3 Baseline FHT 140 few contractions, strip has minimal variability, most likely related to smoker and term . CE soft /-1, midposition Plan: Miso 50 mcg vaginally monitor for labor IV fluid bolus breakfast and oral fluids can be up and about after initial hour of monitoring. will reassess at noon for change and or labor she hasn't decided on pain medication, will wait and see how it goes. 12/16/19 routine cares support encourage ambulation, is a smoker. 24-48 stay
[2019-12-18] MEDS: Acetaminophen 325 MG Tab, 50 Tab Bulk Bottle PO PRN (19:41)
[2019-12-18] MEDS: Ibuprofen 200 MG Tab, 24 Tab Bulk Bottle PO PRN (19:41)
--- NOTE | 2019-12-18 19:41 | PROC ---
DATE OF PROCEDURE: 12/18/2019 SURGEON: Mario Ruby CRNA TIME: 1355. INDICATION: I was called to the Labor and Delivery Unit by Veronica Mendoza to evaluate Ms. Jean for a labor epidural. She is approximately 6 cm, and she is a multipara and is in active labor. Risks and benefits of the procedure were explained to the patient who whished to proceed with labor epidural. TECHNIQUE: She was placed in a sitting position. Her back was prepped x3 with Betadine. 1% lidocaine skin local was used. The epidural was placed at L3-4 using a 17-gauge Tuohy needle in loss of resistance technique. The epidural had very good feel throughout, and the epidural space was easily identified. There was negative CSF, negative blood and negative paresthesias noted. Therefore, a catheter was threaded to 14 cm to skin. The catheter had negative CSF, negative blood, and negative paresthesias, so a test dose was given. This test dose was 3 mL of 1.5% lidocaine with epinephrine, and this test dose was negative. The catheter was then secured with Tegaderm and tape. The patient was placed in a supine position. A 12 mL bolus of 0.2% ropivacaine was given, which she had good results from. A 0.2% ropivacaine drip was started at 12 mL/hour. Her vital signs remained stable throughout the procedure. The nurse was with me for the entire procedure. There were no anesthesia complications noted. We will continue to monitor her throughout her delivery. Mario Ruby CRNA /[id number]
[2019-12-18] MEDS ORDERED: Witch Hazel Medicated Pads 100/Jar TOP PRN (20:02)
[2019-12-18] MEDS ORDERED: Lanolin 100% Cream 40 GM Tube TOP PRN (20:03)
[2019-12-18] MEDS ORDERED: Benzocaine 20% Top Spray 56 GM Bottle TOP PRN (20:04)
[2019-12-18] MEDS: Witch Hazel Medicated Pads 100/Jar TOP ONE (20:10)
[2019-12-18] MEDS: Benzocaine 20% Top Spray 56 GM Bottle TOP ONE (20:10)
[2019-12-18] MEDS: Lanolin 100% Cream 40 GM Tube TOP ONE (20:11)
--- NOTE | 2019-12-19 08:29 | PCM.PNPP ---
- General Info Date of Service: 12/19/19 Functional Status: Reports: Pain Controlled - Review of Systems General: Reports: No Symptoms HEENT: Reports: No Symptoms Pulmonary: Reports: No Symptoms Cardiovascular: Reports: No Symptoms Gastrointestinal: Reports: No Symptoms Genitourinary: Reports: No Symptoms 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: Reports: No Symptoms Skin: Reports: No Symptoms Neurological: Reports: No Symptoms Psychiatric: Reports: No Symptoms - General Info Date of Service: 12/19/19 - Patient Data Vital Signs - Most Recent: Last Vital Signs Temp 36.8 C 12/19/19 07:46 Pulse 78 12/19/19 07:46 Resp 18 12/19/19 07:46 BP 101/56 L 12/19/19 07:46 Pulse Ox 96 12/19/19 07:46 Weight - Most Recent: 81.647 kg I&O - Last 24 Hours: Intake & Output 12/18/19 12/19/19 12/19/19 22:59 06:59 14:59 Intake Total 400 Output Total 100 Balance -100 400 Lab Results - Last 24 Hours: Laboratory Results - last 24 hr 12/18/19 12/18/19 12/19/19 Range/Units 07:15 07:28 04:05 WBC 12.0 H (4.5-11.0) K/uL RBC 3.57 (3.30-5.50) M/uL Hgb 11.2 L (12.0-15.0) g/dL Hct 34.5 L (36.0-48.0) % MCV 97 (80-98) fL MCH 31 (27-31) pg MCHC 33 (32-36) % Plt Count 258 (150-400) K/uL Neut % (Auto) 74 H (36-66) % Lymph % (Auto) 15 L (24-44) % [place] % (Auto) 10 H (2-6) % Eos % (Auto) 2 (2-4) % Baso % (Auto) 0 (0-1) % Urine Color Yellow (YELLOW) Urine Appearance Clear (CLEAR) Urine pH 5.5 (5.0-8.0) Ur Specific [place] 1.025 (1.008-1.030) Urine Protein Negative (NEGATIVE) mg/dL Urine Glucose (UA) Negative (NEGATIVE) mg/dL Urine Ketones Negative (NEGATIVE) mg/dL Urine Occult Blood Negative (NEGATIVE) Urine Nitrite Negative (NEGATIVE) Urine Bilirubin Negative (NEGATIVE) Urine Urobilinogen 0.2 (0.2-1.0) EU/dL Ur Leukocyte Esterase Negative (NEGATIVE) Urine RBC Not seen (0-5) Urine WBC 0-5 (0-5) Ur Epithelial Cells Many Urine Bacteria Few Urine Opiates Screen Negative (NEGATIVE) Ur Oxycodone Screen Negative (NEGATIVE) Urine Methadone Screen Negative (NEGATIVE) Ur Propoxyphene Screen Negative (NEGATIVE) Ur Barbiturates Screen Negative (NEGATIVE) Ur Tricyclics Screen Negative (NEGATIVE) Ur Phencyclidine Scrn Negative (NEGATIVE) Ur Amphetamine Screen Negative (NEGATIVE) U Methamphetamines Scrn Negative (NEGATIVE) Urine MDMA Screen Negative (NEGATIVE) U Benzodiazepines Scrn Negative (NEGATIVE) U Cocaine Metab Screen Negative (NEGATIVE) U Marijuana (THC) Screen Negative (NEGATIVE) Med Orders - Current: Current Medications Acetaminophen (Tylenol Bulk Bottle) 0 mg PO Q4H PRN PRN Reason: Pain Last Admin: 12/18/19 19:41 Dose: 650 mg Benzocaine (Ubme-R-Wvcewng 20% [place]) 0 gm TOP ASDIRECTED PRN PRN Reason: PERINEAL PAIN. Emollient Ointment (Lansinoh Hpa) 0 gm TOP ASDIRECTED PRN PRN Reason: SORENESS Ephedrine Sulfate (Ephedrine Sulfate) 10 mg IVPUSH ASDIRECTED PRN PRN Reason: Hypotension Fentanyl (Sublimaze) 100 mcg IVPUSH Q1H PRN PRN Reason: Pain (moderate 4-6) Hydrocortisone (Proctozone-Hc 2.5% Crm) 0 gm TOP ASDIRECTED PRN PRN Reason: Itching Lactated Ringer's (Ringers, Lactated) 1,000 mls @ 100 mls/hr IV ASDIRECTED MITCHEL Last Admin: 12/18/19 14:30 Dose: 100 mls/hr Ibuprofen (Motrin Bulk Bottle) 600 mg PO Q6H PRN PRN Reason: Pain Last Admin: 12/18/19 19:41 Dose: 600 mg Sodium Chloride (Saline Flush) 10 ml FLUSH ASDIRECTED PRN PRN Reason: Keep Vein Open Witch Laina (Tucks) 1 pad TOP ASDIRECTED PRN PRN Reason: POST PAIN Discontinued Medications Benzocaine (Grok-U-Jmtgfmx 20% [place]) 0 gm TOP Q4H ONE Stop: 12/18/19 17:18 Last Admin: 12/18/19 20:10 Dose: 1 applic Emollient Ointment (Lansinoh Hpa) 0 gm TOP ASDIRECTED ONE Stop: 12/18/19 17:18 Last Admin: 12/18/19 20:11 Dose: 1 applic Oxytocin/Sodium Chloride (Pitocin In Ns 20 Units/1,000 Ml) 20 unit in 1,000 mls @ 999 mls/hr IV ONETIME ONE; Protocol Stop: 12/18/19 11:00 Last Admin: 12/18/19 17:00 Dose: 999 mls/hr, 999 mls/hr Lactated Ringer's (Ringers, Lactated) 1,000 mls @ 500 mls/hr IV ASDIRECTED MITCHEL Stop: 12/18/19 10:00 Last Admin: 12/18/19 08:25 Dose: 500 mls/hr Lactated Ringer's (Ringers, Lactated) 1,000 mls @ 999 mls/hr IV BOLUS ONE Stop: 12/18/19 14:45 Last Admin: 12/18/19 13:30 Dose: 999 mls/hr Ropivacaine (Naropin 0.2%) Confirm Administered Dose 100 mls @ as directed .ROUTE .STK-MED ONE Stop: 12/18/19 13:55 Misoprostol (Cytotec) 50 mcg VAG ONETIME ONE Stop: 12/18/19 07:31 Last Admin: 12/18/19 08:06 Dose: 50 mcg Misoprostol (Cytotec) 50 mcg VAG ONETIME ONE Stop: 12/18/19 11:22 Last Admin: 12/18/19 13:15 Dose: Not Given Witshyam Schwarzel (Tucks) 1 pad TOP ASDIRECTED ONE Stop: 12/18/19 17:18 Last Admin: 12/18/19 20:10 Dose: 1 applic - Interaction Disposition, : in Room with Family Interaction: Holding Feeding: Attempted ; Nursed Fair/Poor Support Person: Significant Other - Recovery Exam Fundal Tone: Firm Fundal Level: At Umbilicus Fundal Placement: Midline Lochia Amount: Moderate Lochia Color: Rubra/Red Perineum Description: Intact, Minimal Bruising/Swelling Episiotomy/Laceration: None Bladder Status: Voiding Urinary Elimination: Voided - Exam General: Alert, Oriented HEENT: Pupils Equal Neck: Supple Lungs: Clear to Auscultation, Normal Respiratory Effort Cardiovascular: Regular Rate, Regular Rhythm GI/Abdominal Exam: Normal Bowel Sounds, Soft, No Distention, No Mass, Pelvis Stable Extremities: Normal Inspection, Normal Range of Motion, Non-Tender, No Pedal Edema, Normal Capillary Refill Skin: Warm, Dry, Intact Neurological: No New Focal Deficit Psy/Mental Status: Alert, Normal Affect, Normal Mood - Problem List & Annotations (1) Alcohol abuse complicating in first trimester SNOMED Code(s): 37167681, 695646566 Code(s): O99.311 - ALCOHOL USE COMPLICATING , FIRST TRIMESTER; F10.10 - ALCOHOL ABUSE, UNCOMPLICATED Status: Acute Current Visit: Yes (2) SNOMED Code(s): 39074702 Code(s): Z34.90 - ENCNTR FOR SUPRVSN OF NORMAL , UNSP, UNSP TRIMESTER Status: Acute Current Visit: Yes Qualifiers: Weeks of gestation: 39 weeks Qualified Code(s): Z3A.39 - 39 weeks gestation of (3) Smoker SNOMED Code(s): 31278761 Code(s): F17.200 - NICOTINE DEPENDENCE, UNSPECIFIED, UNCOMPLICATED Status: Acute Current Visit: Yes (4) Vacuum-assisted vaginal delivery SNOMED Code(s): 70271551327132831 Code(s): Z37.9 - OUTCOME OF DELIVERY, UNSPECIFIED Status: Acute Current Visit: Yes (5) Vaginal delivery SNOMED Code(s): 048253571 Code(s): O80 - ENCOUNTER FOR FULL-TERM UNCOMPLICATED DELIVERY Status: Acute Current Visit: Yes - Problem List Review Problem List Initiated/Reviewed/Updated: Yes - Assessment Assessment:: 12/16/19 34 year old vacuum assisted vaginal delivery without other complications Male , 12/19/19 PP day 1, no complications FF and bleeding light to moderate VSS going fair Pain controlled Hgb 11.2 - Plan Plan:: 34 year old 39 4/7 weeks, smoker and first trimester alcohol. BPP8/8 GBS and Covid neg HGB 12.3 Baseline FHT 140 few contractions, strip has minimal variability, most likely related to smoker and term . CE soft /-, midposition Plan: Miso 50 mcg vaginally monitor for labor IV fluid bolus breakfast and oral fluids can be up and about after initial hour of monitoring. will reassess at noon for change and or labor she hasn't decided on pain medication, will wait and see how it goes. 12/16/19 routine cares support encourage ambulation, is a smoker. 24-48 stay 12/19/19 Routine cares consultation and support today Encourage feedings every 2-3 hours Anticipate discharge this evening or tomorrow
--- NOTE | 2019-12-20 08:27 | PCM.PNPP ---
- General Info Date of Service: 12/20/19 Functional Status: Reports: Pain Controlled - Review of Systems General: Reports: No Symptoms HEENT: Reports: No Symptoms Pulmonary: Reports: No Symptoms Cardiovascular: Reports: No Symptoms Gastrointestinal: Reports: No Symptoms Genitourinary: Reports: No Symptoms 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: Reports: No Symptoms Skin: Reports: No Symptoms Neurological: Reports: No Symptoms Psychiatric: Reports: No Symptoms - General Info Date of Service: 12/20/19 - Patient Data Vital Signs - Most Recent: Last Vital Signs Temp 37.2 C 12/19/19 23:54 Pulse 82 12/19/19 23:54 Resp 18 12/20/19 02:29 BP 112/59 L 12/19/19 23:54 Pulse Ox 96 12/19/19 23:54 Weight - Most Recent: 81.647 kg I&O - Last 24 Hours: Intake & Output 12/19/19 12/20/19 12/20/19 22:59 06:59 14:59 Intake Total 1600 400 Balance 1600 400 Med Orders - Current: Current Medications Acetaminophen (Tylenol Bulk Bottle) 0 mg PO Q4H PRN PRN Reason: Pain Last Admin: 12/18/19 19:41 Dose: 650 mg Benzocaine (Kcji-Z-Vlnqxly 20% Jaffrey) 0 gm TOP ASDIRECTED PRN PRN Reason: PERINEAL PAIN. Emollient Ointment (Lansinoh Hpa) 0 gm TOP ASDIRECTED PRN PRN Reason: SORENESS Ephedrine Sulfate (Ephedrine Sulfate) 10 mg IVPUSH ASDIRECTED PRN PRN Reason: Hypotension Fentanyl (Sublimaze) 100 mcg IVPUSH Q1H PRN PRN Reason: Pain (moderate 4-6) Hydrocortisone (Proctozone-Hc 2.5% Crm) 0 gm TOP ASDIRECTED PRN PRN Reason: Itching Lactated Ringer's (Ringers, Lactated) 1,000 mls @ 100 mls/hr IV ASDIRECTED MITCHEL Last Admin: 12/18/19 14:30 Dose: 100 mls/hr Ibuprofen (Motrin Bulk Bottle) 600 mg PO Q6H PRN PRN Reason: Pain Last Admin: 12/18/19 19:41 Dose: 600 mg Sodium Chloride (Saline Flush) 10 ml FLUSH ASDIRECTED PRN PRN Reason: Keep Vein Open Hedy Marina (Tucks) 1 pad TOP ASDIRECTED PRN PRN Reason: POST PAIN Discontinued Medications Benzocaine (Fbez-V-Gtuptku 20% Jaffrey) 0 gm TOP Q4H ONE Stop: 12/18/19 17:18 Last Admin: 12/18/19 20:10 Dose: 1 applic Emollient Ointment (Lansinoh Hpa) 0 gm TOP ASDIRECTED ONE Stop: 12/18/19 17:18 Last Admin: 12/18/19 20:11 Dose: 1 applic Oxytocin/Sodium Chloride (Pitocin In Ns 20 Units/1,000 Ml) 20 unit in 1,000 mls @ 999 mls/hr IV ONETIME ONE; Protocol Stop: 12/18/19 11:00 Last Admin: 12/18/19 17:00 Dose: 999 mls/hr, 999 mls/hr Lactated Ringer's (Ringers, Lactated) 1,000 mls @ 500 mls/hr IV ASDIRECTED MITCHEL Stop: 12/18/19 10:00 Last Admin: 12/18/19 08:25 Dose: 500 mls/hr Lactated Ringer's (Ringers, Lactated) 1,000 mls @ 999 mls/hr IV BOLUS ONE Stop: 12/18/19 14:45 Last Admin: 12/18/19 13:30 Dose: 999 mls/hr Ropivacaine (Naropin 0.2%) Confirm Administered Dose 100 mls @ as directed .ROUTE .STK-MED ONE Stop: 12/18/19 13:55 Misoprostol (Cytotec) 50 mcg VAG ONETIME ONE Stop: 12/18/19 07:31 Last Admin: 12/18/19 08:06 Dose: 50 mcg Misoprostol (Cytotec) 50 mcg VAG ONETIME ONE Stop: 12/18/19 11:22 Last Admin: 12/18/19 13:15 Dose: Not Given Hedy Schwarzel (Averys) 1 pad TOP ASDIRECTED ONE Stop: 12/18/19 17:18 Last Admin: 12/18/19 20:10 Dose: 1 applic - Interaction Disposition, : [place] in Room with Family Infant Interaction: Holding Infant Feeding: Attempted ; Nursed Fair/Poor Support Person: Significant Other - Recovery Exam Fundal Tone: Firm Fundal Level: 2 Fingerbreadths Below Umbilicus Fundal Placement: Left Lochia Amount: Small Lochia Color: Rubra/Red Perineum Description: Intact, Minimal Bruising/Swelling Episiotomy/Laceration: None Bladder Status: Voiding Urinary Elimination: Voided - Exam General: Alert, Oriented, Cooperative HEENT: Pupils Equal, Pupils Reactive, EOMI, Mucous Membr. Moist/[place] Neck: Supple Lungs: Clear to Auscultation, Normal Respiratory Effort Cardiovascular: Regular Rate, Regular Rhythm GI/Abdominal Exam: Normal Bowel Sounds, Soft, Non-Tender, No Organomegaly, No Distention, No Abnormal Bruit, No Mass, Pelvis Stable Extremities: Normal Inspection, Normal Range of Motion, Non-Tender, No Pedal Edema, Normal Capillary Refill Skin: Warm, Dry, Intact Neurological: No New Focal Deficit Psy/Mental Status: Alert, Normal Affect, Normal Mood - Problem List & Annotations (1) Alcohol abuse complicating in first trimester SNOMED Code(s): 09553815, 224597806 Code(s): O99.311 - ALCOHOL USE COMPLICATING , FIRST TRIMESTER; F10.10 - ALCOHOL ABUSE, UNCOMPLICATED Status: Acute Current Visit: Yes (2) Smoker SNOMED Code(s): 05754248 Code(s): F17.200 - NICOTINE DEPENDENCE, UNSPECIFIED, UNCOMPLICATED Status: Acute Current Visit: Yes (3) Vacuum-assisted vaginal delivery SNOMED Code(s): 55870190030294002 Code(s): Z37.9 - OUTCOME OF DELIVERY, UNSPECIFIED Status: Acute Current Visit: Yes (4) Vaginal delivery SNOMED Code(s): 477239489 Code(s): O80 - ENCOUNTER FOR FULL-TERM UNCOMPLICATED DELIVERY Status: Acute Current Visit: Yes - Problem List Review Problem List Initiated/Reviewed/Updated: Yes - Assessment Assessment:: 12/16/19 34 year old vacuum assisted vaginal delivery without other complications Male , 12/19/19 PP day 1, no complications FF and bleeding light to moderate VSS going fair Pain controlled Hgb 11.2 12/20/2019 Day Two VD with vacuum assist without complications Fundus firm and bleeding decreasing going fair Desires discharge home today - Plan Plan:: 34 year old 39 4/7 weeks, smoker and first trimester alcohol. BPP8/8 GBS and Covid neg HGB 12.3 Baseline FHT 140 few contractions, strip has minimal variability, most likely related to smoker and term . CE soft /-1, midposition Plan: Miso 50 mcg vaginally monitor for labor IV fluid bolus breakfast and oral fluids can be up and about after initial hour of monitoring. will reassess at noon for change and or labor she hasn't decided on pain medication, will wait and see how it goes. 12/16/19 routine cares support encourage ambulation, is a smoker. 24-48 stay 12/19/19 Routine cares consultation and support today Encourage feedings every 2-3 hours Anticipate discharge this evening or tomorrow 12/20/2019 Continue routine cares consultation and support today Encourage feedings every 2-3 hours Discharge home today To see Veronica in six weeks for visit
== END 2019-12-20 14:00 | disposition home or self-care (01) | DRG 807 ==
LOC: JP.OBCHECK 07:23 → JP.OB 07:26 → OBSVTOIN 16:59 → JP.OB 16:59 → JP.MS 19:49
PROVIDERS: ADMIT Nurse Practitioner Family; ATTEND Nurse Practitioner Family
PROC: 10D07Z6 Extraction of Products of Conception, Vacuum, Via Natural or Artificial Opening (ICD-10-PCS; principal; 2019-12-18)
PROC: 3E0P7VZ Introduction of Hormone into Female Reproductive, Via Natural or Artificial Opening (ICD-10-PCS; 2019-12-18)
PROC: 3E0R3BZ Introduction of Anesthetic Agent into Spinal Canal, Percutaneous Approach (ICD-10-PCS; 2019-12-18)
PROC: 00HU33Z Insertion of Infusion Device into Spinal Canal, Percutaneous Approach (ICD-10-PCS; 2019-12-18)
DX: O99.334 Smoking (tobacco) complicating childbirth (principal); Z37.0 Single live birth; F17.200 Nicotine dependence, unspecified, uncomplicated; Z3A.39 39 weeks gestation of pregnancy; O99.52 Diseases of the respiratory system complicating childbirth; Z20.828 Contact with and (suspected) exposure to other viral communicable diseases; J45.909 Unspecified asthma, uncomplicated; O99.314 Alcohol use complicating childbirth; F10.10 Alcohol abuse, uncomplicated; Z79.899 Other long term (current) drug therapy
CPT/HCPCS: 36415; 51701; 51702; 59409; 76818; 76818-26; 80305-QW; 81001; 85025; 85027; A9270-GY; J2590; J2795; J7120

== ENCOUNTER 2020-09-21 21:55 | Emergency (ER) | payer MEDICAID ==
[2020-09-21] MEDS ORDERED: Bupivacaine 0.5% 10 ML SDV INJECT ONE (22:21)
--- NOTE | 2020-09-21 22:21 | EDM.PDOC ---
ED HPI GENERAL MEDICAL PROBLEM - General Chief Complaint: Upper Extremity Injury/Pain Stated Complaint: HURT RIGHT HAND Time Seen by Provider: 09/21/20 22:06 Source of Information: Reports: Patient History Limitations: Reports: No Limitations - History of Present Illness INITIAL COMMENTS - FREE TEXT/NARRATIVE: Umu is a 35-year-old female presenting to the ED for evaluation of a painful, swollen, right hand. The patient admits to having a alliance party tonight and drinking with friends. After she had a couple drinks on board they decided that they would have a karate chop competition to try to break a 2 x 4. The patient struck the 2 x 4 with her right hand causing immediate pain, swelling, ecchymosis, and decreased movement of the right hand involving the fourth and fifth metacarpals and fingers. There is significant swelling and bruising over the distal fourth and fifth metacarpals and the patient is unable to grasp or move her fingers. Patient reports her pain is a 0 out of 10 without movement but goes up to a 10 out of 10 when she tries to move her fingers. She denies previous injury to this hand. 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: Psychiatric History: Reports: PTSD - Past Surgical History Head Surgeries/Procedures: Reports: None HEENT Surgical History: Reports: None Respiratory Surgical History: Reports: None Dermatological Surgical History: Reports: None Social & Family History - Caffeine Use Caffeine Use: Reports: Soda Review of Systems - Review of Systems Review Of Systems: See Below Constitutional: Reports: No Symptoms Eyes: Reports: No Symptoms Ears: Reports: No Symptoms Nose: Reports: No Symptoms Mouth/Throat: Reports: No Symptoms Respiratory: Reports: No Symptoms Cardiovascular: Reports: No Symptoms GI/Abdominal: Reports: No Symptoms Genitourinary: Reports: No Symptoms 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: Reports: Hand Pain, Joint Pain (Lateral right hand), Joint Swelling (Lateral right hand) Skin: Reports: Bruising (Lateral distal right metacarpals) Neurological: Reports: Tingling Psychiatric: Reports: No Symptoms ED EXAM, GENERAL - Physical Exam Exam: See Below Exam Limited By: No Limitations General Appearance: Alert, Mild Distress Extremities: Normal Capillary Refill, Joint Swelling (Significant swelling over the fourth and fifth metacarpals of the right hand), Limited Range of Motion (Limited range of motion of the third, fourth, and fifth right fingers) Neurological: Alert, Oriented, Normal Cognition, No Motor/Sensory Deficits Psychiatric: Normal Affect, Normal Mood Skin Exam: Ecchymosis (Lateral right hand) ED TRAUMA EXTREMITY PROCEDURES - Joint Reduction Right Other Sedation: Hematoma/Fracture Block (For a boxer's fracture involving the distal fifth metacarpal) Local Anesthesia - Lidocaine (Xylocaine): Other (Vivacaine 0.5%) Pre-Procedure NV Status: Normal Post-Procedure NV Status: Normal Technique: Other (Reduction of the fracture was done with direct pressure and counterpressure on the distal segment to try to force it upward back into a neutral position.) Number of Attempts: 1 Post-Reduction Imaging: Acceptably Reduced (Angulation went from 45 degrees to approximately 15 to 20 degrees. I am not able to reduce the distal fragment any further. A ulnar gutter splint was applied and imaging was done after the application of the splint had set up) Joint Reduction Complications: No - Splinting Right Upper Extremity Splint Site: Right hand Pre-Procedure NV Status: Normal Post-Procedure NV Status: Normal Splint Material: Fiberglass Splint Design: Boxer Splint Applied & Form Fitted By: Provider Provider Post-Splint Application NV Check: NV Status Normal, Good Position Complications: No Course - Vital Signs Last Recorded V/S: Last Vital Signs Temp 36.8 C 09/21/20 22:10 Pulse 110 H 09/21/20 22:10 Resp 18 09/21/20 22:10 BP 134/89 09/21/20 22:10 Pulse Ox 98 09/21/20 22:10 - Orders/Labs/Meds Orders: Active Orders 24 hr Category Date Time Status Hand Comp Min 3V Rt [CR] Stat Exams 09/21/20 21:57 Ordered Meds: Medications Discontinued Medications Generic Name Dose Route Start Last Admin Trade Name Freq PRN Reason Stop Dose Admin Bupivacaine HCl 10 ml 09/21/20 22:21 09/21/20 22:25 Bupivacaine 0.5% 10 Ml Sdv INJECT 09/21/20 22:22 10 ml ONETIME ONE Administration - Radiology Interpretation Free Text/Narrative:: I reviewed the three-view x-ray of the right hand showing significant displaced fracture of the distal fifth metacarpal (boxer's fracture) with about 40 degree number angulation of the distal fragment. Unfortunately, this is not an acceptable amount of angulation will need to be reduced to preferably less than 15 degrees. - Re-Assessments/Exams Free Text/Narrative Re-Assessment/Exam: 09/21/20 22:24 I reviewed the three-view x-ray of the right hand showing significant displaced fracture of the distal fifth metacarpal (boxer's fracture) with about 40 degree number angulation of the distal fragment. Unfortunately, this is not an acceptable amount of angulation will need to be reduced to preferably less than 15 degrees. I discussed the risks and benefits of this procedure and will proceed with a hematoma block and closed reduction. We will then place the patient in an ulnar gutter splint and arrange for her to follow- up in orthopedic surgery for reevaluation and casting. 09/21/20 22:46 the site was anesthetized using bupivacaine 0.5% requiring 4 cc for hematoma block of the distal fifth metacarpal. The joint was reduced using direct pressure and counterpressure on the distal segment forcing it upward back into a neutral position. While trying to maintain this I also applied an ulnar gutter splint (boxers splint) and followed up with repeat imaging for evaluation of the reduction of angulation of the distal segment. I did achieve some improvement from 45 degree angulation to between 15 and 20 degree but was not able to improve beyond that. The patient is neurovascularly intact both prior to and after the application of the splint. She is instructed to ice and elevate the hand to reduce swelling. I will place a consult orthopedic surgery for reevaluation, surgical consult and casting. I will send the patient with a small amount of hydrocodone for pain control. Indications return to the ED were discussed and she was suitable for discharge in satisfactory condition. Departure - Departure Time of Disposition: 22:48 Disposition: Home, Self-Care 01 Clinical Impression: Boxer's fracture Qualifiers: Encounter type: initial encounter Fracture type: closed Qualified Code(s): S62.339A - Displaced fracture of neck of unspecified metacarpal bone, initial encounter for closed fracture - Discharge Information Instructions: Joe's Fracture Referrals: PCP,None [Primary Care Provider] - Forms: ED Department Discharge Care Plan Goals: A consult has been placed for you to see orthopedic surgery in follow-up. In addition, I am sending you home with a small amount of hydrocodone for pain control. You may use Tylenol in addition to this. It is important to ice and elevate the hand to get the swelling down. The orthopedic follow-up will determine whether or not you will require surgery for further correction of this fracture. You will likely also be casted if surgery is not necessary. Please keep the splint in place and dry. Sepsis Event Note (ED) - Focused Exam Vital Signs: Vital Signs Temp Pulse Resp BP Pulse Ox 09/21/20 22:10 36.8 C 110 H 18 134/89 98 - Problem List & Annotations (1) Mayas fracture SNOMED Code(s): 05070248 Code(s): S62.339A - DISP FX OF NECK OF UNSP METACARPAL BONE, INIT FOR CLOS FX Status: Acute Priority: Medium Current Visit: Yes Qualifiers: Encounter type: initial encounter Fracture type: closed Qualified Code(s): S62.339A - Displaced fracture of neck of unspecified metacarpal bone, initial encounter for closed fracture - Problem List Review Problem List Initiated/Reviewed/Updated: Yes - My Orders Last 24 Hours: My Active Orders 09/21/20 21:57 Hand Comp Min 3V Rt [CR] Stat - Assessment/Plan Last 24 Hours: My Active Orders 09/21/20 21:57 Hand Comp Min 3V Rt [CR] Stat
--- NOTE | 2020-09-23 10:32 | CR ---
Hand Comp Min 3V Rt, CLINICAL HISTORY: Trauma FINDINGS: There is a comminuted slightly angulated fracture of the distal aspect of the fifth metacarpal. Fracture line extends to the articular margin. There is palmar angulation. Impression: Fracture fifth metacarpal Hand Comp Min 3V Rt CLINICAL HISTORY: Postreduction FINDINGS: There is reduced angulation at the fifth metacarpal fracture. There is a splint in place. IMPRESSION: Post reduction of an angulated distal fifth metacarpal fracture
== END 2020-09-21 23:05 | disposition home or self-care (01) ==
LOC: JP.ED 21:55
DX: S62.336A Displaced fracture of neck of fifth metacarpal bone, right hand, initial encounter for closed fracture (principal); J45.909 Unspecified asthma, uncomplicated; Z91.048 Other nonmedicinal substance allergy status; Z91.013 Allergy to seafood; Z79.899 Other long term (current) drug therapy; W22.8XXA Striking against or struck by other objects, initial encounter; Y93.75 Activity, martial arts
CPT/HCPCS: 26605; 73130-26-RT; 73130-RT; 99283-25; J3490

== ENCOUNTER 2020-12-07 23:37 | Emergency (ER) | payer MEDICAID | END 2020-12-08 00:40 | disposition left against medical advice (07) | LOC: JP.ED 23:37 | DX: Z53.21 Procedure and treatment not carried out due to patient leaving prior to being seen by health care provider (principal) ==

== ENCOUNTER 2021-04-23 02:30 | Emergency (ER) | payer MEDICAID ==
--- NOTE | 2021-04-23 03:02 | EDM.PDOC ---
ED HPI GENERAL MEDICAL PROBLEM - General Chief Complaint: Chest Pain Stated Complaint: CHEST PAIN Time Seen by Provider: 04/23/21 03:00 Source of Information: Reports: Patient History Limitations: Reports: No Limitations - History of Present Illness INITIAL COMMENTS - FREE TEXT/NARRATIVE: pt arrived having pain in the left chest. Sharp in nature. No history of a injury. She has been doing some drinking tonight. Onset: Today, Other ( started about 1 hour ago. 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: 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 History: Reports: Fracture Other 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 History: right hand boxer's FX 09/21/20 Psychiatric History: Reports: Addiction, PTSD - Past Surgical History Head Surgeries/Procedures: Reports: None Social & Family History - Tobacco Use Tobacco Use Status *Q: Light Tobacco User Years of Tobacco use: 19 Packs/Tins Daily: 0.5 - Caffeine Use Caffeine Use: Reports: None - Recreational Drug Use Recreational Drug Use: No ED ROS GENERAL - Review of Systems Review Of Systems: See Below Constitutional: Reports: No Symptoms HEENT: Reports: No Symptoms Respiratory: Reports: Other (sharp pain in left chest. ) Cardiovascular: Reports: Chest Pain Endocrine: Reports: No Symptoms GI/Abdominal: Reports: No Symptoms : Reports: No Symptoms 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: Reports: No Symptoms Skin: Reports: No Symptoms Neurological: Reports: No Symptoms ED EXAM, GENERAL - Physical Exam Exam: See Below Free Text/Narrative:: pt arrived with discomfort in the left chest which came on about 1 hour ago. She feels like it does hurt more with deep breathing. She has been drinking tonight and does admit to 5 shots of vodka. Exam Limited By: No Limitations General Appearance: Alert, Anxious, Mild Distress, Other (pt has been breathing fast but this has calmed down. ) Ears: Normal TMs Nose: Normal Inspection Throat/Mouth: Normal Inspection Head: Atraumatic Neck: Normal Inspection Respiratory/Chest: No Respiratory Distress, Other (pt has good o2 sats. ) Cardiovascular: Regular Rate, Rhythm, Tachycardia GI/Abdominal: Soft, Non-Tender (Female) Exam: Deferred Rectal (Female) Exam: Deferred Back Exam: Normal Inspection Extremities: Normal Inspection Neurological: Alert, Oriented, Normal Cognition Psychiatric: Anxious #1 Interpretation Rhythm: NSR Roberts: Normal EKG Interpretation Comments: pt has tachcardia no st changes. Course - Vital Signs Last Recorded V/S: Last Vital Signs Temp 36.6 C 04/23/21 02:42 Pulse 105 H 04/23/21 04:07 Resp 11 L 04/23/21 04:07 BP 116/69 04/23/21 04:07 Pulse Ox 97 04/23/21 04:07 - Orders/Labs/Meds Orders: Active Orders 24 hr Category Date Time Status EKG 12 Lead [EK] Routine Ther 04/23/21 03:11 Ordered Labs: Laboratory Tests 04/23/21 04/23/21 04/23/21 Range/Units 03:00 03:00 03:00 WBC 8.8 (4.5-11.0) K/uL RBC 5.10 (3.30-5.50) M/uL Hgb 16.4 H D (12.0-15.0) g/dL Hct 48.2 H (36.0-48.0) % MCV 95 (80-98) fL MCH 32 H (27-31) pg MCHC 34 (32-36) % Plt Count 232 (150-400) K/uL Neut % (Auto) 57.6 (36-66) % Lymph % (Auto) 26.1 (24-44) % [place] % (Auto) 13.9 H (2-6) % Eos % (Auto) 2.1 (2-4) % Baso % (Auto) 0.3 (0-1) % D-Dimer, Quantitative (0.0-500.0) ng/mL Sodium 137 L (140-148) mmol/L Potassium 3.9 (3.6-5.2) mmol/L Chloride 100 (100-108) mmol/L Carbon Dioxide 17 L (21-32) mmol/L Anion Gap 23.9 H (5.0-14.0) mmol/L BUN 12 (7-18) mg/dL Creatinine 0.9 (0.6-1.0) mg/dL Est Cr Clr Drug Dosing 67.69 mL/min Estimated GFR (MDRD) > 60 (>60) Glucose 117 H (74-106) mg/dL Calcium 8.8 (8.5-10.1) mg/dL Total Bilirubin 0.9 (0.2-1.0) mg/dL AST 49 H (15-37) U/L ALT 45 (12-78) U/L Alkaline Phosphatase 78 (46-116) U/L Troponin I < 0.017 (0.000-0.056) ng/mL Total Protein 7.8 (6.4-8.2) g/dL Albumin 4.7 (3.4-5.0) g/dL Globulin 3.1 (2.3-3.5) g/dL Albumin/Globulin Ratio 1.5 (1.2-2.2) Ethyl Alcohol mg/dL 04/23/21 04/23/21 Range/Units 03:00 03:00 WBC (4.5-11.0) K/uL RBC (3.30-5.50) M/uL Hgb (12.0-15.0) g/dL Hct (36.0-48.0) % MCV (80-98) fL MCH (27-31) pg MCHC (32-36) % Plt Count (150-400) K/uL Neut % (Auto) (36-66) % Lymph % (Auto) (24-44) % [place] % (Auto) (2-6) % Eos % (Auto) (2-4) % Baso % (Auto) (0-1) % D-Dimer, Quantitative 519.15 H (0.0-500.0) ng/mL Sodium (140-148) mmol/L Potassium (3.6-5.2) mmol/L Chloride (100-108) mmol/L Carbon Dioxide (21-32) mmol/L Anion Gap (5.0-14.0) mmol/L BUN (7-18) mg/dL Creatinine (0.6-1.0) mg/dL Est Cr Clr Drug Dosing mL/min Estimated GFR (MDRD) (>60) Glucose (74-106) mg/dL Calcium (8.5-10.1) mg/dL Total Bilirubin (0.2-1.0) mg/dL AST (15-37) U/L ALT (12-78) U/L Alkaline Phosphatase (46-116) U/L Troponin I (0.000-0.056) ng/mL Total Protein (6.4-8.2) g/dL Albumin (3.4-5.0) g/dL Globulin (2.3-3.5) g/dL Albumin/Globulin Ratio (1.2-2.2) Ethyl Alcohol 353 mg/dL Meds: Medications Discontinued Medications Generic Name Dose Route Start Last Admin Trade Name Freq PRN Reason Stop Dose Admin Acetaminophen 650 mg 04/23/21 03:19 04/23/21 03:30 Acetaminophen 325 Mg Tab PO 04/23/21 03:20 650 mg NOW ONE Administration Acetaminophen Confirm 04/23/21 03:27 Acetaminophen 325 Mg Tab Administered 04/23/21 03:28 Dose 325 mg .ROUTE .STK-MED ONE Lorazepam 0.5 mg 04/23/21 03:16 04/23/21 03:30 Lorazepam 0.5 Mg Tab PO 04/23/21 03:17 0.5 mg ONETIME ONE Administration - Re-Assessments/Exams Free Text/Narrative Re-Assessment/Exam: 04/23/21 03:42 pt has a ekg without acute changes. Her trop is neg. She has a normal wbc. Her chest xray does not reveal a infiltrate or fluid. Pt does admit to having some anxiety problems. 04/23/21 03:52 04/23/21 18:55 ddimer is not sinificantly elevated. Her trop was normal. She was clearly hyperventilating at times. Departure - Departure Time of Disposition: 04:16 Disposition: Home, Self-Care 01 Condition: Fair Clinical Impression: Anxiety, Hyperventilation Instructions: Hyperventilation, Panic Attack Referrals: PCP,None [Primary Care Provider] - Forms: ED Department Discharge Care Plan Goals: low activity, tylenol or motrin for chest discomfort. encourage deep breathing. Sepsis Event Note (ED) - Evaluation Sepsis Screening Result: No Definite Risk - My Orders Last 24 Hours: My Active Orders 04/23/21 03:11 EKG 12 Lead [EK] Routine - Assessment/Plan Last 24 Hours: My Active Orders 04/23/21 03:11 EKG 12 Lead [EK] Routine
[2021-04-23] MEDS ORDERED: LORazepam 0.5 MG Tab PO ONE (03:16)
[2021-04-23] MEDS ORDERED: Acetaminophen 325 MG Tab PO ONE (03:19)
[2021-04-23] MEDS ORDERED: Acetaminophen 325 MG Tab ONE (03:27)
--- NOTE | 2021-04-23 09:47 | CR ---
CHEST: Portable 04/23/2021 at 3:35 AM CLINICAL HISTORY:Left chest pain COMPARISON:None FINDINGS: The heart size, pulmonary vascularity and hilar structures are normal. No infiltrate effusion or pneumothorax is seen. IMPRESSION: No acute cardiopulmonary process.
== END 2021-04-23 05:23 | disposition home or self-care (01) ==
LOC: JP.ED 02:30
DX: F41.9 Anxiety disorder, unspecified (principal); R06.4 Hyperventilation; Z91.09 Other allergy status, other than to drugs and biological substances; Z91.013 Allergy to seafood; Z72.0 Tobacco use
CPT/HCPCS: 36415; 71045; 80053; 80307; 84484; 85025; 85379; 93005; 99285; A9270

== ENCOUNTER 2021-06-28 05:35 | Emergency (ER) | payer MEDICAID ==
--- NOTE | 2021-06-28 07:13 | EDM.PDOC ---
<Leonardo Garcia - Last Filed: 06/28/21 07:13> ED HPI GENERAL MEDICAL PROBLEM - General Chief Complaint: [employer] Problem Stated Complaint: STUCK IUD AND CAUSING PAIN Time Seen by Provider: 06/28/21 06:16 Source of Information: Reports: Patient History Limitations: Reports: No Limitations - History of Present Illness INITIAL COMMENTS - FREE TEXT/NARRATIVE: Umu is a 35-year-old female presenting to the ED for evaluation of pelvic pain especially on the right side after having coitus this morning. The patient is concerned that her IUD may have become dislodged and is causing her pain. The patient states that she has been having intermittent bleeding for the last several weeks which is only been a scant amount. She states that she was in her normal state of health until having intercourse when she started having the right sided pelvic pain. She denies any fever or chills. She has had some white discharge from the vagina along with the bleeding over the last couple of weeks. She denies any back pain, urinary symptoms, urgency or frequency, nausea or vomiting. Left Lower Abdominal Pain Score (Numeric/FACES): 2 - Related Data Allergies Allergy/AdvReac Type Severity Reaction Status Date / Time cat dander Allergy Itching Verified 06/28/21 05:49 raw fish Allergy Numbness Uncoded 06/28/21 05:49 Home Meds: Home Meds Albuterol Sulfate [Albuterol Sulfate Hfa] 1 - 2 puff IH Q4H PRN 12/18/19 [History] Past Medical History HEENT History: Reports: Impaired Vision Respiratory History: Reports: Asthma [employer] History: Reports: 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 History: Reports: Fracture Other 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 History: right hand boxer's FX 09/21/20 Psychiatric History: Reports: Addiction, PTSD Hematologic History: Reports: Anemia - Infectious Disease History Infectious Disease History: Reports: Chicken Pox, Novel Coronavirus - Past Surgical History Head Surgeries/Procedures: Reports: None HEENT Surgical History: Reports: None Respiratory Surgical History: Reports: None 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 Surgical History: Reports: None Dermatological Surgical History: Reports: None Social & Family History - Tobacco Use Tobacco Use Status *Q: Current Every Day Tobacco User Years of Tobacco use: 13 Packs/Tins Daily: 0.5 - Caffeine Use Caffeine Use: Reports: None - Recreational Drug Use Recreational Drug Use: No ED ROS GENERAL - Review of Systems Review Of Systems: See Below Constitutional: Reports: No Symptoms : Reports: Discharge (Mild amount of white vaginal discharge), Irregular Menses (Scant amount of bleeding from the vagina over the last 2 weeks.), Pain (Pelvic pain after colitis. Patient has a Mirena IUD.) 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: Reports: No Symptoms Skin: Reports: No Symptoms Hematologic/Lymphatic: Reports: No Symptoms Immunologic: Reports: No Symptoms ED EXAM, RENAL/ - Physical Exam Exam: See Below Exam Limited By: No Limitations General Appearance: Alert, No Apparent Distress, Anxious GI/Abdominal: Normal Bowel Sounds, Soft, Non-Tender (Female) Exam: Normal External Exam, Normal Speculum Exam (IUD strings are identified at the cervix. There is a small amount of blood coming from the cervix.), Adnexal Tenderness (Right adnexal tenderness on bimanual palpation.), Vaginal Bleeding (Scant vaginal bleeding), Vaginal Discharge (Small amount of clear to white discharge). No: Adnexal Mass, Cervical Dilatation, Cervix Motion Tenderness, Enlarged Uterus, Vaginal Lesions Neurological: Alert, Oriented, Normal Cognition, No Motor/Sensory Deficits Psychiatric: Normal Affect, Normal Mood, Anxious Skin Exam: Warm, Dry, Intact, Normal Color Course - Re-Assessments/Exams Free Text/Narrative Re-Assessment/Exam: 06/28/21 07:11 bimanual exam would suggest that there is possibly a ruptured ovarian cyst on the right as there is no significant palpable mass but there is significant tenderness to palpation of the right adnexa. There is no cervical motion tenderness and the strings from the IUD are present in the cervical os. We will get an ultrasound to better approximate the location of the IUD and to look at the ovaries. Care of the patient will be turned over to Dr. Javier while awaiting the results of the ultrasound. 06/28/21 07:13 urinalysis is negative. Departure - Departure Disposition: Home, Self-Care 01 Clinical Impression: Pelvic pain - Discharge Information Referrals: Veronica Mendoza CNM [Primary Care Provider] - Forms: ED Department Discharge Additional Instructions: Nothing showed up on your tests today. If your pain persists or recurs then get rechecked and suggest perhaps you have a CT scan to look for something outside of your pelvis. OK to take acetaminophen or ibuprofen as needed. Talk to your provider about checking an FSH level to see if you might be entering menopause or talk to your sister/mom regarding how old they were when they started to enter menopause. You probably should schedule an appt to have your IUD out when having a period. Sepsis Event Note (ED) - Evaluation Sepsis Screening Result: No Definite Risk <Joaquín Javier - Last Filed: 06/28/21 08:05> Course - Vital Signs Last Recorded V/S: Last Vital Signs Temp 36.6 C 06/28/21 05:52 Pulse 115 H 06/28/21 05:52 Resp 19 06/28/21 05:52 BP 135/75 06/28/21 05:52 Pulse Ox 95 06/28/21 05:52 - Orders/Labs/Meds Orders: Active Orders 24 hr Category Date Time Status Pelvis Non OB Ltd [US] Stat Exams 06/28/21 06:16 Taken Transvaginal Non OB [US] Stat Exams 06/28/21 07:00 Taken Labs: Laboratory Tests 06/28/21 06/28/21 06/28/21 Range/Units 06:16 07:18 07:25 WBC 5.8 (4.5-11.0) K/uL RBC 4.66 (3.30-5.50) M/uL Hgb 15.1 H (12.0-15.0) g/dL Hct 44.6 (36.0-48.0) % MCV 96 (80-98) fL MCH 32 H (27-31) pg MCHC 34 (32-36) % Plt Count 177 (150-400) K/uL C-Reactive Protein 0.09 (0.0-0.3) mg/dL Urine Color Yellow (YELLOW) Urine Appearance Slightly cloudy A (CLEAR) Urine pH 6.5 (5.0-8.0) Ur Specific [place] 1.025 (1.008-1.030) Urine Protein >=300 H (NEGATIVE) mg/dL Urine Glucose (UA) Negative (NEGATIVE) mg/dL Urine Ketones 15 H (NEGATIVE) mg/dL Urine Occult Blood Trace-intact H (NEGATIVE) Urine Nitrite Negative (NEGATIVE) Urine Bilirubin Negative (NEGATIVE) Urine Urobilinogen 1.0 (0.2-1.0) EU/dL Ur Leukocyte Esterase Negative (NEGATIVE) Urine RBC 0-5 (0-5) Urine WBC 0-5 (0-5) Ur Epithelial Cells Few Amorphous Sediment Not seen Urine Bacteria Not seen Urine Mucus Many Urine Other - Radiology Interpretation Free Text/Narrative:: Pelvic US-no pathology seen - Re-Assessments/Exams Free Text/Narrative Re-Assessment/Exam: 06/28/21 07:22 US is negative, will check for PID Departure - Departure Time of Disposition: 08:02 Condition: Good - Discharge Information *PRESCRIPTION DRUG MONITORING PROGRAM REVIEWED*: Not Applicable *COPY OF PRESCRIPTION DRUG MONITORING REPORT IN PATIENT HODAN: Not Applicable Sepsis Event Note (ED) - Focused Exam Vital Signs: Vital Signs Temp Pulse Resp BP Pulse Ox 06/28/21 05:52 36.6 C 115 H 19 135/75 95 - My Orders Last 24 Hours: My Active Orders 06/28/21 07:00 Transvaginal Non OB [US] Stat - Assessment/Plan Last 24 Hours: My Active Orders 06/28/21 07:00 Transvaginal Non OB [US] Stat
--- NOTE | 2021-06-28 08:11 | CRLUS ---
For Patients: As a result of the Century Cures Act, medical imaging exams and procedure reports are released immediately into your electronic medical record. You may view this report before your referring provider. If you have questions, please contact your health care provider. CLINICAL HISTORY: Left pelvic pain TECHNIQUE: Real time, ledezma scale images were acquired of the pelvis using a transabdominal and transvaginal approach. Color Doppler analysis was performed of the ovaries. FINDINGS: Uterus measures 6 x 4 x 2.7 x 4.4 centimeters. Tiny amount fluid in the endocervical canal. IUD in the endometrium in a satisfactory position. Endometrium measures 2 millimeters. Ovaries appear unremarkable. Right ovary measures 1.6 x 1 x 1.2 centimeters. Left ovary measures 2.4 x 1.8 x 1.9 centimeters. Normal blood flow to both. No free fluid. Unremarkable IMPRESSION: Normal pelvic ultrasound. Dictated by Rama Archer MD @ 06/28/2021 8:09:51 AM (Electronically Signed)
--- NOTE | 2021-06-28 22:54 | CRLUS ---
Final Report: CLINICAL HISTORY: Left pelvic pain TECHNIQUE: Real time, ledezma scale images were acquired of the pelvis using a transabdominal and transvaginal approach. Color Doppler analysis was performed of the ovaries. FINDINGS: Uterus measures 6 x 4 x 2.7 x 4.4 centimeters. Tiny amount fluid in the endocervical canal. IUD in the endometrium in a satisfactory position. Endometrium measures 2 millimeters. Ovaries appear unremarkable. Right ovary measures 1.6 x 1 x 1.2 centimeters. Left ovary measures 2.4 x 1.8 x 1.9 centimeters. Normal blood flow to both. No free fluid. Unremarkable IMPRESSION: Normal pelvic ultrasound. Dictated by Rama Archer MD @ 06/28/2021 8:09:51 AM (Electronic Signature) [email or web address]
== END 2021-06-28 08:00 | disposition home or self-care (01) ==
LOC: JP.ED 05:35
DX: R10.2 Pelvic and perineal pain (principal); R10.32 Left lower quadrant pain; F17.210 Nicotine dependence, cigarettes, uncomplicated; Z91.013 Allergy to seafood
CPT/HCPCS: 36415; 76830; 76857; 81001; 85027; 86140; 99284-25

== ENCOUNTER 2025-05-17 14:29 | Emergency (ER) | payer MEDICAID ==
[2025-05-17 14:37] LABS: BASOPHILS ABSOLUTE AUTO 0.04 K/uL (0.00-0.10); BASOPHILS PERCENT AUTO 0.6 % (0.1-1.3); EOSINOPHILS ABSOLUTE AUTO 0.11 K/uL (0.00-0.40); EOSINOPHILS PERCENT AUTO 1.7 % (0.0-5.4); IMMATURE GRAN PERCENT AUTO 0.3 % (0.0-0.7); LYMPHOCYTES ABSOLUTE AUTO 2.29 K/uL (0.8-3.3); LYMPHOCYTES PERCENT AUTO 34.9 % (11.4-47.7); MONOCYTES ABSOLUTE AUTO 0.51 K/uL (0.20-0.90); MONOCYTES PERCENT AUTO 7.8 % (3.3-12.6); NEUTROPHILS ABSOLUTE AUTO 3.59 K/uL (1.0-7.6); NEUTROPHILS PERCENT AUTO 54.7 % (40.0-78.1); PLATELET COUNT,PLT 295 K/uL (130-375); RED BLOOD CELL COUNT 4.77 M/uL (3.77-5.24); WHITE BLOOD CELL COUNT,WBC 6.6 K/uL (3.2-11.0)
[2025-05-17 14:45] LABS: IMMATURE GRAN ABSOLUTE AUTO 0.02 K/uL (0.00-0.23)
[2025-05-17 15:00] LABS: A/G RATIO 1.2 (1.2-2.2); ALANINE AMINOTRANSFERASE,ALT 30 U/L (12-78); ASPARTATE AMNIOTRANSFERASE,AST 35 U/L (15-37); BILIRUBIN TOTAL 1.4 mg/dL (0.2-1.0); BLOOD UREA NITROGEN,BUN 10 mg/dL (7-18); CARBON DIOXIDE,CO2 24 mmol/L (21-32); CHLORIDE,CL 101 mmol/L (100-108); CREATININE 0.9 mg/dL (0.6-1.0); ESTIMATED GFR 82 mL/min (>60); GLUCOSE RANDOM 98 mg/dL (74-106); POTASSIUM,K 3.7 mmol/L (3.6-5.2); PROTEIN TOTAL,TP 7.7 g/dL (6.4-8.2); SODIUM,NA 139 mmol/L (140-148); TROPONIN I HIGH SENSITIVITY 4.4 pg/mL (<=60.3)
[2025-05-17 15:10] LABS: APPEARANCE,URINE CLEAR (CLEAR); GLUCOSE,URINE NEGATIVE (NEGATIVE); OCCULT BLOOD,URINE SMALL (NEGATIVE)
[2025-05-17 15:16] LABS: SQUAMOUS EPITHELIAL CELLS,UR RARE /HPF; UROTHELIAL CELLS,URINE NOT SEEN /HPF
[2025-05-17 15:17] LABS: AMPHETAMINES SCREEN, URINE NEGATIVE (NEGATIVE); METHADONE SCREEN, URINE NEGATIVE (NEGATIVE); METHAMPHETAMINES SCREEN, URINE NEGATIVE (NEGATIVE); OXYCODONE SCREEN,URINE NEGATIVE (NEGATIVE); PROPOXYPHENE SCREEN,URINE NEGATIVE (NEGATIVE); THC SCREEN,URINE 50 NG/ML NEGATIVE (NEGATIVE)
== END 2025-05-17 16:29 | disposition home or self-care (01) ==
LOC: JP.ED 14:29
DX: F41.9 Anxiety disorder, unspecified (principal); I10 Essential (primary) hypertension; F17.200 Nicotine dependence, unspecified, uncomplicated; J45.909 Unspecified asthma, uncomplicated; Z79.51 Long term (current) use of inhaled steroids; Z91.013 Allergy to seafood; Z91.048 Other nonmedicinal substance allergy status; Z86.16 Personal history of COVID-19
CPT/HCPCS: 36415; 71046; 80053; 80305; 81001; 84484; 85025; 87086; 87088; 87186; 93005; 99285; A9270